=== PATIENT | female | born 1970 | race Caucasian/White ===

== ENCOUNTER → 2016-05-11 | Outpatient (REF) ==
[~2016-05-11] MED LIST: DHA; LEXAPRO 10MG10 MG PO; PRENATAL1 TA1 PO; ROLAIDS220 MG PO; ZOFRAN4 M1 PO
== END ==
LOC: ZLAB.WCH 15:01
DX: Z01.89 Encounter for other specified special examinations (principal)

== ENCOUNTER → 2016-05-20 | Outpatient (CLI) | payer BC | LOC: COL.RAD 13:49 | DX: M51.26 Other intervertebral disc displacement, lumbar region (principal) ==

== ENCOUNTER → 2016-05-26 | Outpatient (CLI) | payer BC | LOC: MC.RAD 09:27 | DX: Z12.31 Encounter for screening mammogram for malignant neoplasm of breast (principal) ==

== ENCOUNTER → 2017-07-20 | Outpatient (CLI) | payer BC | LOC: MC.RAD 09:38 | DX: Z12.31 Encounter for screening mammogram for malignant neoplasm of breast (principal); Z80.3 Family history of malignant neoplasm of breast ==

== ENCOUNTER → 2018-08-05 | Outpatient (CLI) | payer BC | LOC: MC.RAD 10:53 | DX: Z12.31 Encounter for screening mammogram for malignant neoplasm of breast (principal) ==

== ENCOUNTER → 2019-08-24 | Outpatient (CLI) | payer BC | LOC: MC.RAD 11:16 | DX: Z12.31 Encounter for screening mammogram for malignant neoplasm of breast (principal) ==

== ENCOUNTER 2020-03-15 09:45 | Day surgery (SDC) | payer OTHER ==
[~2020-03-15] VITALS: Ht 172.7 cm; Wt 66.0 kg
[2020-03-15 10:26] VITALS: BP 130/77; PULSE 84; TEMP 98.9
--- NOTE | 2020-03-15 10:32 | NUR ---
Patient has Pepcid ordered pre-op. This is held, per Shawn Kim CRNA.
[2020-03-15 11:25] VITALS: BP 115/73; PULSE 84; TEMP 98.2
--- NOTE | 2020-03-15 11:25 | NUR ---
TO BAY 3 PER CART FROM ENDOSCOPY. ALERT ORIENTED X3, TALKING WITH STAFF. AMBULATED TO RECLINER WITH ASSIST. RECEIVED MUFFIN AND WATER.
--- NOTE | 2020-03-15 11:35 | NUR ---
DR GRESHAM INTO TALK WITH PATIENT
[2020-03-15 11:40] VITALS: BP 118/62; PULSE 73
--- NOTE | 2020-03-15 11:40 | NUR ---
ATE 100% AND TOLERATED WELL RECEIVED DISCHARGE INSTRUCTIONS AND VERBALIZED UNDERSTANDING. DISCONTINUED IV AND INT- CATHETER INTACT.
--- NOTE | 2020-03-15 11:55 | NUR ---
RECEIVED DISCHARGE INSTRUCTIONS AND VERBALIZED UNDERSTANDING. DISCONTINUED IV AND INT- CATHETER INTACT PATIENT GETTING DRESSED AND TEXTED FOR RIDE HOME.
--- NOTE | 2020-03-15 12:14 | NUR ---
DISCHARGED PER WC BY NURSING STAFF TO PRIVATE CAR IN CARE OF LINDA.
== END 2020-03-15 12:15 | disposition home or self-care (01) ==
LOC: SDCO 09:45
DX: Z12.11 Encounter for screening for malignant neoplasm of colon (principal); D12.3 Benign neoplasm of transverse colon; K62.89 Other specified diseases of anus and rectum; K57.30 Diverticulosis of large intestine without perforation or abscess without bleeding; Z88.8 Allergy status to other drugs, medicaments and biological substances; Z20.828 Contact with and (suspected) exposure to other viral communicable diseases
CPT/HCPCS: J2704; J7120

== ENCOUNTER → 2020-08-27 | Outpatient (CLI) | payer OTHER | LOC: MC.RAD 08-26 09:45 | DX: Z12.31 Encounter for screening mammogram for malignant neoplasm of breast (principal) ==

== ENCOUNTER → 2021-09-04 | Outpatient (CLI) | payer OTHER | LOC: MC.RAD 09:54 | DX: Z12.31 Encounter for screening mammogram for malignant neoplasm of breast (principal) ==

== ENCOUNTER → 2023-10-19 | Outpatient (CLI) | payer OTHER | LOC: MC.RAD 13:05 | DX: Z12.31 Encounter for screening mammogram for malignant neoplasm of breast (principal) ==